=== PATIENT | male | born 1965 | race Caucasian/White ===

== ENCOUNTER 2022-10-28 13:27 | Day surgery (SDC) | payer BC ==
[~2022-10-28] VITALS: Ht 188 cm; Wt 162.5 kg
[~2022-10-28 13:27] MED LIST: Bactrim Ds Tab1 EACH PO; IBUP800 PO; Keflex500 MG PO; META800 PO; Norco 5-325 Ta1 EACH PO; OXYACE5T PO; PROACE100 PO; RXOXYACE PO; SULTRIDS PO
[2022-10-28] MEDS ORDERED: AMLO5 PO (14:16)
[2022-10-28] MEDS ORDERED: LISI20 PO (14:17)
[2022-10-28] MEDS ORDERED: AMLO10 PO (14:17)
[2022-10-28] MEDS ORDERED: ZESTORETIC 20-251 EA PO (14:17)
--- NOTE | 2022-10-28 14:22 | NUR ---
10/28/22 1422 Gayle Woodward CALL AUGUSTA WITHIN REACH. TETRACAINE IN LEFT EYE AT 1418 AND PLEDGETT IN AT 1419
[2022-10-28 15:38] VITALS: BP 130/65
== END 2022-10-28 15:56 | disposition home or self-care (01) ==
LOC: ORSCSDS 13:27
PROVIDERS: Ophthalmology
PROC: 08RK3JZ Replacement of Left Lens with Synthetic Substitute, Percutaneous Approach (ICD-10-PCS; principal; 2022-10-28 15:00)
DX: H25.12 Age-related nuclear cataract, left eye (principal); E66.9 Obesity, unspecified; Z68.42 Body mass index [BMI] 45.0-49.9, adult; I10 Essential (primary) hypertension; Z79.899 Other long term (current) drug therapy
CPT/HCPCS: J2250; J3010; J3301; J7040; V2632